=== PATIENT | female | born 1960 | race Asian ===

== ENCOUNTER 2020-08-08 07:26 | Emergency (ER) | payer OTHER ==
[~2020-08-08] VITALS: Ht 152.4 cm; Wt 63.5 kg
[2020-08-08 07:38] VITALS: Ht 152.4 cm; Wt 63.5 kg
[2020-08-08 07:59] LABS: CALCIUM 8.2 mg/dL (8.5-10.1); CARBON DIOXIDE 24.9 mmol/L (21-32); CHLORIDE SERUM 101 mmol/L (98-107); CREATININE SERUM 0.8 mg/dL (0.6-1.0); GFR1 > 60 mL/min; GLUCOSE SERUM 153 mg/dL (74-106); POTASSIUM SERUM 3.2 mmol/L (3.5-5.1); SODIUM SERUM 132 mmol/L (136-145)
[2020-08-08 08:03] LABS: ALBUMIN 3.5 g/dL (3.4-5.0); ALKALINE PHOSPHATASE 74 U/L (46-116); ALT/SGPT 33 U/L (14-59); AST/SGOT 17 U/L (15-37); BASOPHIL % 0.5 % (0-2); BILIRUBIN TOTAL 0.5 mg/dL (0.20-1.00); CHOLESTEROL 228 mg/dL (<200); HDL CHOLESTEROL 60 mg/dL (40-60); MAGNESIUM 2.3 mg/dL (1.8-2.4); PLATELET COUNT 293 x10^3mcL (130-400); RED CELL DISTRIBUTION WIDTH 13.2 % (11.5-14.5); TOTAL PROTEIN, SERUM 6.8 g/dL (6.4-8.2)
[2020-08-08 10:17] LABS: microscopic required? NO
[2020-08-08 10:29] LABS: UA SPECIFIC GRAVITY 1.025 (1.005-1.035); urine erythrocyte NEGATIVE (NEGATIVE)
[2020-08-08 13:37] VITALS: BP 117/62
== END 2020-08-08 13:37 | disposition home or self-care (01) ==
LOC: ED 07:26
PROVIDERS: Emergency Medicine
DX: R42 Dizziness and giddiness (principal); R11.2 Nausea with vomiting, unspecified; Z20.828 Contact with and (suspected) exposure to other viral communicable diseases
CPT/HCPCS: 82962; J2550; J7030; J8597; Q0092